=== PATIENT | female | born 1945 | race Caucasian/White ===

== ENCOUNTER 2016-05-06 14:07 | Emergency (ER) | payer OTHER, MEDICARE ==
--- NOTE | 2016-05-06 16:02 | ED ANKLE/FOOT INJURY COMPLAINT ---
History of Present Illness General Chief Complaint: Foot or Ankle Injury Stated Complaint: ABNORMAL FOOT XRAY Source: patient, family () Exam Limitations: no limitations Vital Signs & Intake/Output Vital Signs & Intake/Output Vital Signs Date Time Temp Pulse Resp B/P Pulse O2 O2 Flow FiO2 Ox Delivery Rate 05/06 1645 98.0 78 16 124/68 05/06 1630 Room Air 05/06 1414 96.8 69 20 130/87 96 Room Air Allergies Coded Allergies: NO KNOWN ALLERGIES (05/06/16) Triage Note: PT PRESENTS TO ER STATING SHE JUST HAD A FOOT XRAY OUTPATIENT BECAUSE SHE FELL DOWN 5-6 STAIRS LAST NIGHT. PT STATES SHE LANDED ON HER LEFT FOOT AND DOCTOR SENT HER IN TODAY. XRAY SHOWED AN ACUTE CALCANEAL FX. PT DENIES HITTING HEAD, -LOC Triage Nurses Notes Reviewed? yes HPI: Patient is a 71-year-old female presents complaining of left heel pain status post fall. Patient was walking down her steps in her home yesterday when she slipped and fell down approximately 5-6 steps. Pain is 6-7 out of 10 at rest, 10 out of 10 with any weightbearing. Patient had an outpatient x-ray by her primary doctor and was diagnosed with a calcaneal fracture and referred to the emergency department for further evaluation. Patient reports initially she had coccyx pain yesterday evening, no back pain at this time. Patient denies head injury, loss of consciousness, numbness, neck pain. (MAHI GATICA) Past History Travel History Traveled to [place] past 21 day No Medical History Any Pertinent Medical History? see below for history Cardiovascular: hypertension, hyperlipidemia Surgical History Surgical History: non-contributory Psychosocial History What is your primary language Khmer Tobacco Use: Never used Family History Hx Contributory? No (MAHI GATICA) Review of Systems Review of Systems Constitutional: Denies: chills, fever. EENTM: Reports: no symptoms. Respiratory: Reports: no symptoms. Cardiovascular: Reports: no symptoms. GI: Reports: no symptoms. Genitourinary: Reports: no symptoms. Musculoskeletal: Reports: see HPI. Skin: Reports: no symptoms. Neurological/Psychological: Reports: no symptoms. Hematologic/Endocrine: Reports: bruising (left foot). (MAHI GATICA) Physical Exam Physical Exam General Appearance: well developed/nourished, alert, awake Head: atraumatic, normal appearance Eyes: Bilateral: normal appearance. Ears, Nose, Throat: hearing grossly normal Neck: normal inspection, supple, full range of motion, no midline tenderness Cardiovascular/Respiratory: no respiratory distress, chest nontender Gastrointestinal: soft, nontender Back: normal inspection, normal range of motion, no vertebral tenderness Leg/Knee/Thigh Left: normal range of motion, normal inspection Leg/Knee/Thigh Right: normal range of motion, normal inspection Ankle Left: normal inspection, normal range of motion Foot Left: ECCHYMOSIS AND SWELLING LEFT CALCANEOUS AND LEFT LATERAL FOOT. Calcaneous nontender. Full range of motion of ankle and foot. Dorsalis pedis pulses 2+ Neuro/Vascular: normal motor function, normal sensation Tendon: normal tendon function (MAHI GATICA) Progress Differential Diagnosis: fracture, sprain, contusion Plan of Care: Patient declined pain medication on initial exam. Discussed with and seen by Dr. Zuniga Discussed with Dr Zuniga: place in "U" shaped splint, non weightbearing and have follow up in the [place] office on . Diagnostic Imaging: Viewed by Me: Radiology Read. Discussed w/RAD: Radiology Read. Radiology Impression: PATIENT: TK PELLETIER PRESENT AGE: 71 PATIENT ACCOUNT NO: [id number] : 44 LOCATION: X[facility] ORDERING PHYSICIAN: JESSICA SUAZO MD SERVICE DATE: 05/06/16 EXAM TYPE: RAD - X[facility]- ANKLE 3 OR MORE VIEWS L; XRY-FOOT COMPLETE, LEFT EXAMINATION: LEFT FOOT AND LEFT ANKLE RADIOGRAPHS. CLINICAL INFORMATION: Status post fall. Contusion left foot. Unable to bear weight. COMPARISON: No relevant prior imaging is available. TECHNIQUE: 3 views of the left ankle were obtained. 3 views of the left foot were obtained. FINDINGS: There is an acute fracture of the left calcaneus. Mild associated soft tissue swelling. No dislocation. There is a small ankle joint effusion. The distal foot is intact. IMPRESSION: Acute calcaneal fracture. DICTATED BY: CORTEZ MACHUCA,SMILEY Charles DATE/TIME DICTATED:05/06/161339 BEATER LEAD:SAGAR DATE/TIME TRANSCRIBED:05/06/161339 CONFIDENTIAL, DO NOT COPY WITHOUT APPROPRIATE AUTHORIZATION. <Electronically signed in Other Vendor System> SIGNED BY: CORTEZ MACHUCA,SMILEY Charles 05/06/16 1346 (MAHI GATICA) Departure Departure Time of Disposition: 1642 Disposition: HOME OR SELF CARE Condition: Stable Clinical Impression Primary Impression: Calcaneus fracture, left Qualifiers: Encounter type: initial encounter Calcaneus location: unspecified portion of calcaneus Fracture type: closed Fracture alignment: nondisplaced Qualified Code: S92.002A - Unspecified fracture of left calcaneus, initial encounter for closed fracture Referrals: LAKEISHA MACHUCA,JESSICA (PCP/Family) ANGEL ZUNIGA MD Additional Instructions: Follow up with Dr. Zuniga(orthopedist) on . Rest, elevate your leg as much as possible, wear splint until seen by the orthopedist. Do not walk or put weight on your left foot. Return to the ER if pain uncontrollable or worsening of symptoms. Departure Forms: Customer Survey General Discharge Information (MAHI GATICA) PA/ORNAMENTER Co-Sign Statement Statement: ED Attending supervision documentation- [X] I saw and evaluated the patient. I have also reviewed all the pertinent lab results and diagnostic results. I agree with the findings and the plan of care as documented in the PA's/ORNAMENTER's documentation. [] I have reviewed the ED Record and agree with the PA's/ORNAMENTER's documentation. [] Additions or exceptions (if any) to the PAs/ORNAMENTER's note and plan are summarized below: [] (ULYSSES CLARK DO) Procedures Splinting Location: left lower extremity Hand-Made Type: orthoglass Splint: "U" shaped stirrup splint Splint Applied By: splint applied by me Pre-Proc Neuro Vasc Exam: normal Post-Proc Neuro Vasc Exam: normal (MAHI GATICA)
[2016-05-06 16:45] VITALS: BP 124/68
== END 2016-05-06 17:07 ==
LOC: ERH 14:07
DX: S92.002A Unspecified fracture of left calcaneus, initial encounter for closed fracture (principal); W10.9XXA Fall (on) (from) unspecified stairs and steps, initial encounter; Y93.01 Activity, walking, marching and hiking; Y92.9 Unspecified place or not applicable
CPT/HCPCS: 73610-LT; 73630-LT